=== PATIENT | female | born 1990 | race Caucasian/White ===

== ENCOUNTER 2017-03-24 17:41 | Emergency (ER) | payer OTHER ==
[2017-03-24 17:52] VITALS: BP 135/75; PULSE 86; TEMP 98.2; BMI 21.6
--- NOTE | 2017-03-24 17:54 | PDOC ---
Rapid Medical Evaluation Chief Complaint: Eye Problem Time Seen by Provider: 03/24/17 17:51 Medical Evaluation: Allergies Allergy/AdvReac Type Severity Reaction Status Date / Time sulfamethoxazole Allergy Verified 01/26/15 18:12 [From Bactrim] trimethoprim [From Bactrim] Allergy Verified 01/26/15 18:12 03/24/17 17:51 The patient presents with a chief complaint of: eye pain for 3 days. Scratched eye with [place] paper I have performed a brief in-person evaluation of this patient; Pertinent physical exam findings PRETTY TORRES I have ordered the following: Nothing The patient will proceed to the ED for further evaluation.
[2017-03-24] MEDS ORDERED: FLUORESCEIN NA 1 EA STRIP ONE (18:15)
[2017-03-24] MEDS ORDERED: ERYTHROMYCIN 0.5% OPHTHALMIC OINTMENT 3.5 GM TUBE ONE (18:18)
--- NOTE | 2017-03-24 18:30 | PDOC ---
History of Present Illness - General Chief Complaint: Eye Problem Stated Complaint: EYE PAIN Time Seen by Provider: 03/24/17 17:51 History Source: Patient - History of Present Illness Initial Comments: 03/24/17 18:20 26 year old scratched eye with a box 3 days ago c/o left eye pain that worsened over the days. Patient is afebrile. no pain to eye with movement. 03/24/17 18:55 Past History - Past Medical History Allergies/Adverse Reactions: Allergies Allergy/AdvReac Type Severity Reaction Status Date / Time sulfamethoxazole Allergy Verified 03/24/17 17:52 [From Bactrim] trimethoprim [From Bactrim] Allergy Verified 03/24/17 17:52 Home Medications: Ambulatory Orders Amoxicillin/Potassium Clav [Augmentin 875-125 Tablet] 1 each PO BID #20 tablet 03/24/17 Erythromycin 0.5% Eye Ointment [Erythromycin 0.5% Eye Ointment -] 1 applic OP TID #1 tube 03/24/17 COPD: No Other medical history: denies - Reproductive History (#): 2 Para: 0 Therapeutic (s) & number: No Spontaneous : 1 - Suicide/Smoking/Psychosocial Hx Smoking Status: Yes Smoking History: Current some day smoker Number of Cigarettes Smoked Daily: 10 Information on smoking cessation initiated: No Drug/Substance Use Hx: No Substance Use Type: Alcohol Review of Systems - Review of Systems Able to Perform ROS?: Yes Is the patient limited Fijian proficient: No HEENTM: Yes: Eye Pain *Physical Exam - Vital Signs Last Vital Signs Temp Pulse Resp BP Pulse Ox 98.2 F 86 18 135/75 98 03/24/17 17:49 03/24/17 17:49 03/24/17 17:49 03/24/17 17:49 03/24/17 17:49 - Physical Exam General Appearance: Yes: Appropriately Dressed HEENT: positive: Other (PERRLA, + abrasion to lower left conjunctiva. left septal early cellulitis? septal erythema with tenderness) Medical Decision Making - Medical Decision Making 03/24/17 18:32 Left septal early cellulitis; left corneal abrasion P: augmentin erythromycin close ophthalmology follow up *DC/Admit/Observation/Transfer Diagnosis at time of Disposition: Corneal abrasion, left Qualifiers: Encounter type: initial encounter Qualified Code(s): S05.02XA - Injury of conjunctiva and corneal abrasion without foreign body, left eye, initial encounter - Discharge Dispostion Disposition: HOME - Prescriptions Prescriptions: Amoxicillin/Potassium Clav [Augmentin 875-125 Tablet] 1 each PO BID #20 tablet Erythromycin 0.5% Eye Ointment [Erythromycin 0.5% Eye Ointment -] 1 applic OP TID #1 tube - Referrals - Patient Instructions Printed Discharge Instructions: DI for Corneal Abrasion Additional Instructions: apply warm compress to left eye. instill erythromycin thin ribbon to left eye. take augmentin as prescribed. followup with an msw as soon as possible. return to the ER if symptoms worsen. - Post Discharge Activity Forms/Work/School Notes: Back to Work
[2017-03-24] MEDS ORDERED: FLUORESCEIN NA 1 EA STRIP OS ONE (18:54)
[2017-03-24] MEDS ORDERED: ERYTHROMYCIN 0.5% OPHTHALMIC OINTMENT 3.5 GM TUBE OS ONE (18:54)
== END 2017-03-24 19:00 | disposition home or self-care (01) ==
LOC: JERFT 17:41
DX: S05.02XA Injury of conjunctiva and corneal abrasion without foreign body, left eye, initial encounter (principal); L03.213 Periorbital cellulitis; W22.8XXA Striking against or struck by other objects, initial encounter; Y93.89 Activity, other specified; Y92.89 Other specified places as the place of occurrence of the external cause; Y99.8 Other external cause status
CPT/HCPCS: 99281-25

== ENCOUNTER 2017-05-15 12:35 | Emergency (ER) | payer OTHER ==
[2017-05-15 12:42] VITALS: BP 108/70; PULSE 84; TEMP 98.2; BMI 22.4
[2017-05-15] MEDS ORDERED: ALBUTEROL SO4 2.5/IPRATROPIUM 0.5 INH SOL 3 ML VIAL.NEB. NEB ONE ×3 (15:13→15:36)
--- NOTE | 2017-05-15 15:17 | PDOC ---
History of Present Illness - General Chief Complaint: Ear Problem Stated Complaint: COLD SYMPTOMS Time Seen by Provider: 05/15/17 15:03 History Source: Patient Exam Limitations: No Limitations - History of Present Illness Initial Comments: 05/15/17 , Patient came for evaluation of cough for approximately one week, denies fever, phlegm or purulent drainage from nose however states feels tight. Has used multiple [id number] medications with minimal resolved Timing/Duration: 1 week, intermittent Severity: mild, moderate Modifying Factors: improves with: cold therapy, medication Associated Symptoms: reports: cough, fever/chills, headaches, malaise Past History - Travel Traveled outside of the country in the last 30 days: No Close contact w/someone who was outside of country & ill: No - Past Medical History Allergies/Adverse Reactions: Allergies Allergy/AdvReac Type Severity Reaction Status Date / Time sulfamethoxazole Allergy Verified 05/15/17 12:42 [From Bactrim] trimethoprim [From Bactrim] Allergy Verified 05/15/17 12:42 Home Medications: Ambulatory Orders Albuterol 0.083% Nebulizer Genna [Ventolin 0.083% Nebulizer Soln -] 1 neb NEB Q4H PRN #30 vial 05/15/17 predniSONE [Deltasone -] 20 mg PO BID #8 tablet 05/15/17 COPD: No - Reproductive History (#): 2 Para: 0 Therapeutic (s) & number: No Spontaneous : 1 - Suicide/Smoking/Psychosocial Hx Smoking Status: Yes Smoking History: Current some day smoker Have you smoked in the past 12 months: No Number of Cigarettes Smoked Daily: 10 Information on smoking cessation initiated: No Hx Alcohol Use: No Drug/Substance Use Hx: No Substance Use Type: Alcohol Review of Systems - Review of Systems Able to Perform ROS?: Yes Is the patient limited Kyrgyz proficient: Yes Constitutional: Yes: Symptoms Reported, See HPI, Loss of Appetite, Malaise. No : Fever HEENTM: Yes: Symptoms Reported, Nose Congestion, Throat Pain Respiratory: Yes: Symptoms reported, See HPI, Cough, Shortness of Breath, Wheezing ABD/GI: Yes: Symptoms Reported, See HPI, Nausea. No: Vomiting Musculoskeletal: Yes: Symptoms Reported, See HPI, Muscle Pain Integumentary: No: Symptoms Reported All Other Systems: Reviewed and Negative *Physical Exam - Vital Signs Last Vital Signs Temp Pulse Resp BP Pulse Ox 98.2 F 84 18 108/70 100 05/15/17 12:40 05/15/17 12:40 05/15/17 12:40 05/15/17 12:40 05/15/17 12:40 - Physical Exam General Appearance: Yes: Nourished, Appropriately Dressed, Apparent Distress, Mild Distress HEENT: positive: MESHA, Pharynx Normal, Nasal Congestion, Rhinorrhea (clear), TM Bulging. negative: TMs Normal (congested bilaterally but landmarks easily visualized), TM Erythema Neck: positive: Supple. negative: Lymphadenopathy (R), Lymphadenopathy (L) Respiratory/Chest: positive: Lungs Clear (but tight inspiratory expiratory breath sounds, no true wheezing noted), Decreased Breath Sounds (been mildly tight bilaterally, no obvious wheezing noted.) Cardiovascular: positive: Regular Rate Gastrointestinal/Abdominal: positive: Soft. negative: Tender Musculoskeletal: positive: Normal Inspection Extremity: positive: Normal Capillary Refill, Normal Inspection Integumentary: positive: Dry, Warm, Pale Neurologic: positive: material hauler II-XII NML intact, Fully Oriented, Alert, Normal Mood/ Affect, Normal Response, Motor Strength 5/5 Medical Decision Making - Medical Decision Making 05/15/17 17:02 Much improved after 2 DuoNeb's, and dose of 60 mg of by mouth prednisone. Patient states feels much improved and ready for discharge. *DC/Admit/Observation/Transfer Diagnosis at time of Disposition: Upper respiratory infection, viral - Discharge Dispostion Disposition: HOME Condition at time of disposition: Stable Admit: No - Prescriptions Prescriptions: Albuterol 0.083% Nebulizer Genna [Ventolin 0.083% Nebulizer Soln -] 1 neb NEB Q4H PRN #30 vial PRN Reason: Cough predniSONE [Deltasone -] 20 mg PO BID #8 tablet - Referrals Referrals: Ian Hernandez [Primary Care Provider] - - Patient Instructions Printed Discharge Instructions: DI for Viral Upper Respiratory Infection -- Adult Additional Instructions: Rest, drink lots of fluids: Teas, water, soups, Pedialyte Saltwater gargles Steamy showers/seem to face break up mucus Avoid contact with others until fevers and cough resolved Lots of handwashing and good hygiene Continue [id number]-mdazhgk medications for symptomatic relief Tylenol or Motrin for fever and pain Continue albuterol nebulizers every 4-6 hours for the next 2 days then as needed for continued cough Prednisone as directed until completed Followup with private physician in one to 2 days Return to emergency department / pediatric hospital for worsened symptoms, fevers, dehydration - Post Discharge Activity Forms/Work/School Notes: Back to Work
[2017-05-15] MEDS ORDERED: predniSONE 20 MG TABLET (UD) PO ONE (15:35)
[2017-05-15] MEDS ORDERED: predniSONE 20 MG TABLET (UD) ONE (15:36)
== END 2017-05-15 15:49 | disposition home or self-care (01) ==
LOC: JERFT 12:35
PROC: 3E0F7GC Introduction of Other Therapeutic Substance into Respiratory Tract, Via Natural or Artificial Opening (ICD-10-PCS; principal; 2017-05-15)
PROC: 3E0F7GC Introduction of Other Therapeutic Substance into Respiratory Tract, Via Natural or Artificial Opening (ICD-10-PCS; 2017-05-15)
DX: J06.9 Acute upper respiratory infection, unspecified (principal); B97.89 Other viral agents as the cause of diseases classified elsewhere
CPT/HCPCS: 84703; 94640; 99281-25

== ENCOUNTER 2018-05-03 14:01 | Emergency (ER) | payer OTHER ==
--- NOTE | 2018-05-03 14:57 | PDOC ---
Rapid Medical Evaluation Chief Complaint: Vaginal Bleeding Medical Evaluation: Allergies Allergy/AdvReac Type Severity Reaction Status Date / Time sulfamethoxazole Allergy Verified 05/03/18 14:52 [From Bactrim] trimethoprim [From Bactrim] Allergy Verified 05/03/18 14:52 05/03/18 14:55 I have performed a brief in-person evaluation of this patient. The patient presents with a chief complaint of: Multiple complains including chest tightness w/ cough and sob today, no body aches, f/c. Currently on ocps for menorrhagia but non-compliant as unable to tolerate. Currently bleeding and heavy per pt. C/o dizziness x 1 week. Of note, hgb 12/13 was 12 Physical exam findings:Stable and well opal I have ordered the following:ekg/labs/ua The patient will proceed to the ED for further evaluation. Discharge Disposition - Diagnosis DUB (dysfunctional uterine bleeding) - Referrals - Patient Instructions - Post Discharge Activity
[2018-05-03 14:58] VITALS: BP 104/71; PULSE 71; TEMP 98.1; BMI 24.1
[2018-05-03 15:32] LABS: BASO % 0.6 % (0-2.0); EOS % 1.6 % (0-4.5); HEMATOCRIT 39.8 % (32.4-45.2); HEMOGLOBIN 13.8 GM/dL (10.7-15.3); LYMPH % 28.7 % (8-40); MCH 31.9 pg (25.7-33.7); MCHC 34.8 g/dl (32.0-36.0); MEAN CELL VOLUME 91.7 fl (80-96); MEAN PLT VOLUME 8.8 fl (7.5-11.1); MONO % 5.3 % (3.8-10.2); NEUT % 63.8 % (42.8-82.8); PLATELET COUNT 248 K/MM3 (134-434); RBC 4.34 M/mm3 (3.60-5.2); RDW 12.6 % (11.6-15.6); WHITE BLOOD COUNT 12.9 K/mm3 (4.0-10.0)
--- NOTE | 2018-05-03 16:52 | PDOC ---
History of Present Illness - General Chief Complaint: Vaginal Bleeding Stated Complaint: CHEST PAIN/ COUGHING UP BLOOD - History of Present Illness Initial Comments: The patient is a 28F w/ a history of menorrhagia (non-compliant w/ OCP therapy) and asthma who presents for evaluation of 4d of N/V/D. She reports starting a new OCP (BlisoviFe) Tuesday and shortly thereafter her symptoms began. She reports 3-4 episodes of NBNB emesis each day. Today she noted only one episode of vomiting that was streaked w/ a small amount of blood. She reports her diarrhea has been non-bloody. She endorses sick contacts at home w/ similar symptoms. She reports that her vomiting is preceded by coughing episodes. She states her symptoms are worse at night. They start with scratchy throat, progress to chest tightness, then cough, then vomiting. She has not been using her inhaler recently. She has tried to use her inhaler once unsuccessfully during one of these spells. She reports approximately 4 months of heavy periods w/ associated cramping. She is scheduled for a D&C on Tuesday w/ Dr. Escamilla. She has been on OCPs. The dose was changed last week to double her previous dose. She was taking that dose from last Tuesday until this past Tuesday when she stopped because she thought they were causing her N/V. 05/03/18 16:49 PMH: asthma, menorrhagia PSH: appendectomy Meds: inhaler, OCPs SH: +Tobacco, Social EtOH, Denies illicit drug use Allergies: Bactrim (rash/swelling) Past History - Past Medical History Allergies/Adverse Reactions: Allergies Allergy/AdvReac Type Severity Reaction Status Date / Time sulfamethoxazole Allergy Verified 05/03/18 14:52 [From Bactrim] trimethoprim [From Bactrim] Allergy Verified 05/03/18 14:52 Home Medications: Ambulatory Orders Acetaminophen [Tylenol .Regular Strength -] 650 mg PO Q6H tablet 12/25/17 Albuterol Sulfate Inhaler - [Ventolin HFA Inhaler -] 1 - 2 inh PO Q4H PRN Ibuprofen [Motrin -] 600 mg PO Q6H tablet 12/25/17 Asthma: Yes COPD: No - Surgical History Appendectomy: Yes - Reproductive History (#): 2 Para: 0 Therapeutic (s) & number: No Spontaneous : 1 - Immunization History Immunization Up to Date: Yes - Suicide/Smoking/Psychosocial Hx Smoking Status: Yes Smoking History: Current every day smoker Have you smoked in the past 12 months: Yes Number of Cigarettes Smoked Daily: 20 Information on smoking cessation initiated: No Hx Alcohol Use: No Drug/Substance Use Hx: No Substance Use Type: Marijuana Hx Substance Use Treatment: No Review of Systems - Review of Systems Able to Perform ROS?: Yes Comments:: GENERAL/CONSTITUTIONAL: No fever or chills. No weakness HEAD, EYES, EARS, NOSE AND THROAT: No change in vision. No ear pain or discharge. No sore throat CARDIOVASCULAR: per HPI RESPIRATORY: + cough; Denies hemoptysis GASTROINTESTINAL: per HPI GENITOURINARY: +menorrhagia/cramping; No dysuria, frequency, or change in urination MUSCULOSKELETAL: No joint or muscle swelling or pain. No neck or back pain SKIN: No rash NEUROLOGIC: No headache, vertigo, loss of consciousness, or change in strength/ sensation ENDOCRINE: No increased thirst. No abnormal weight change HEMATOLOGIC/LYMPHATIC: +menorrhagia; No anemia, easy bleeding, or history of blood clots ALLERGIC/IMMUNOLOGIC: No hives or skin allergy 05/03/18 16:50 Is the patient limited Hong Konger proficient: No *Physical Exam - Vital Signs Last Vital Signs Temp Pulse Resp BP Pulse Ox 98.1 F 71 18 104/71 99 05/03/18 14:53 05/03/18 14:53 05/03/18 14:53 05/03/18 14:53 05/03/18 14:53 - Physical Exam Comments: GENERAL: Awake, alert, and fully oriented, in no acute distress HEAD: No signs of trauma, normocephalic, atraumatic EYES: PERRLA, EOMI, sclera anicteric, conjunctiva clear ENT: Hearing grossly normal, nares patent, oropharynx clear without exudates. Moist mucosa LUNGS: No distress, speaks full sentences, clear to auscultation bilaterally HEART: Regular rate and rhythm, normal S1 and S2, no murmurs appreciated, peripheral pulses normal and equal bilaterally ABDOMEN: Soft, non-distended, suprapubic and LLQ TTP w/o rebound or guarding EXTREMITIES : Normal inspection, Normal range of motion, no edema. No clubbing or cyanosis NEUROLOGICAL: Cranial nerves II through XII grossly intact. Normal speech, no focal sensorimotor deficits SKIN: Warm, Dry Pelvic External genitalia unremarkable. Speculum exam with blood in the vaginal vault Vaginal wall mucosa is unremarkable Cervix visualized, os closed, with active bleed from os Bimanual exam without cervical motion tenderness, +tenderness w/ palpation of uterus, no adenexal TTP 05/03/18 16:50 Moderate Sedation - Procedure Monitoring Vital Signs: Procedure Monitoring Vital Signs Temperature 98.1 F 05/03/18 14:53 Pulse Rate 71 05/03/18 14:53 Respiratory Rate 18 05/03/18 14:53 Blood Pressure 104/71 05/03/18 14:53 O2 Sat by Pulse Oximetry (%) 99 05/03/18 14:53 ED Treatment Course - LABORATORY CBC & Chemistry Diagram: 05/03/18 15:00 05/03/18 15:08 - ADDITIONAL ORDERS Additional order review: Laboratory Results 05/03/18 15:08 Serum , Qual Negative 05/03/18 15:00 RBC 4.34 MCV 91.7 MCHC 34.8 RDW 12.6 MPV 8.8 Neutrophils % 63.8 D Lymphocytes % 28.7 D Monocytes % 5.3 Eosinophils % 1.6 D Basophils % 0.6 D Medical Decision Making - Medical Decision Making The pt is a 28F w/ a history of menorrhagia but non-compliant w/ OCP therapy presents for evaluation of 4d of chest tightness/cough, N/V/D, and 4 months of menorrhagia w/ cramps. ED Course CMP, CBC, Serum preg Serum preg negative Hgb at baseline, 13.8 05/03/18 16:50 Tylenol 975mg PO once given for pain 05/03/18 18:13 Marissa delucal Discussed case w/ Dr. Escamilla. Patient w/ slow vaginal bleed and Hgb normal. Plan for D/C and f/u w/ scheduled D&C this coming Tuesday Pt appears non-toxic/comfortable in ED. Requesting to eat solid foods. Plan for D/C w/ PCP & OBGYN f/u Discharge instructions and return precautions given Patient in agreement and verbalized understanding Dispo: home 05/03/18 19:00 *DC/Admit/Observation/Transfer Diagnosis at time of Disposition: DUB (dysfunctional uterine bleeding), Viral syndrome, Post-tussive emesis - Discharge Dispostion Disposition: HOME Condition at time of disposition: Stable Decision to Admit order: No - Referrals Referrals: Rachid Hernandez MD [Primary Care Provider] - Lani Escamilla DO [Staff Physician] - - Patient Instructions Printed Discharge Instructions: DI for Viral Syndrome, DI for Menorrhagia Additional Instructions: You were seen in the Emergency Department for evaluation of nausea, vomiting, diarrhea, cough, and vaginal bleeding/cramping. Your hemoglobin was normal. Review the handout provided at discharge. Follow up with OBGYN and your PCP. Return to the Emergency Department if your bleeding worsens, you are unable to tolerate food, you have fevers despite Tylenol use, worsening symptoms, or any new/concerning symptoms. - Post Discharge Activity
--- NOTE | 2018-05-03 17:12 | PDOC ---
Attending Attestation - HPI HPI: 05/03/18 19:00 The patient is a 28 year old female with a significant PMH of asthma who presents to the emergency department with menorrhagia for the past two months. Patient states she has a scheduled D&C on 05/08. Patient also states she has been experiencing nausea, dry cough, post-tussive emesis, and diarrhea for the past 4 days. Patient reports she starting taking a new OCP (BlisoiFe) prior to the onset of these symptoms. Patient states she stopped taking her OCPs to see if her symptoms would resolve. Patient reports positive sick contact at home. The patient denies chest pain, shortness of breath, headache, dizziness, fever, chills, constipation. Denies dysuria, frequency, urgency and hematuria. Allergies: NKA Past surgical history: None reported. Social history: No reported alcohol, drug or cigarette use. PCP: Dr. Hernandez - Physicial Exam PE: 05/03/18 19:07 ADULT PHYSICAL EXAM Constitutional: Awake, alert, oriented. No acute distress. Cardiovascular: Regular rate. Regular rhythm. S1, S2 regular. Distal pulses are 2+ and symmetric. Pulmonary/Chest: No evidence of respiratory distress. Clear to auscultation bilaterally No wheezing, rales or rhonchi. Abdominal: Soft and non-distended. There is no tenderness. No rebound, guarding or rigidity. No organomegaly. No palpable masses. Good bowel sounds. Back: No CVA tenderness. Musculoskeletal: No edema. Full range of motion in all extremities. Radial/ pedal pulses are intact and 2+ bilaterally Skin: Skin is warm and dry. No petechiae. No purpura. Neurological: Alert and oriented to person, place, and time. Cranial nerves II -XII are grossly intact. Normal speech. Strength is grossly symmetric. No sensory deficits. Psychiatric: Good eye contact. Normal interaction, affect and behavior. <Felicia Doherty - Last Filed: 05/03/18 19:04> - Resident Resident Name: Thien Shook - ED Attending Attestation I have performed the following: I have examined & evaluated the patient, The case was reviewed & discussed with the resident, I agree w/resident's findings & plan, Exceptions are as noted - Medical Decision Making 05/03/18 17:11 I, Dr. Verito Noonan, DO, attest that this document has been prepared under my direction and personally reviewed by me in its entirety. I further attest, that it accurately reflects all work, treatment, procedures and medical decision -making performed by me. 05/03/18 19:16 a/p: 28yo female with viral syndrome - dry cough, n/v/d -no fevers/chills -symptoms since tuesday -nontoxic in appearance -scheduled for dc tuesday with Dr. Escamilla -labs sent from [facility] reviewed -pt ambulatory in the ED with a steady gait -eating chips and drinking soda - no vomiting in the ED -stable for dc to home and follow up on tuesday with NURSES DIRECTOR -stopped her control and c/o pelvic cramping since starting her OCP <Verito Noonan - Last Filed: 05/03/18 19:18>
[2018-05-03] MEDS ORDERED: ACETAMINOPHEN 325 MG TABLET (FP) PO ONE (18:13)
[2018-05-03 18:37] LABS: ALBUMIN 3.6 g/dl (3.4-5.0); ALK PHOS 58 U/L (45-117); ANION GAP 8 MMOL/L (8-16); BILIRUBIN,TOTAL 0.2 mg/dL (0.2-1); BLOOD UREA NITROGEN 12 mg/dL (7-18); CALCIUM 8.5 mg/dL (8.5-10.1); CHLORIDE 106 mmol/L (98-107); CO2 23 mmol/L (21-32); CREATININE 0.7 mg/dL (0.55-1.3); GLUCOSE,RANDOM 97 mg/dL (74-106); SGOT/AST 12 U/L (15-37); SGPT/ALT 24 U/L (13-61); SODIUM 137 mmol/L (136-145); TOT PROT 7.1 g/dl (6.4-8.2)
[2018-05-03] MEDS ORDERED: ACETAMINOPHEN 325 MG TABLET (FP) ONE (19:01)
--- NOTE | 2018-05-04 16:44 | EKG ---
Test Reason : Blood Pressure : / mmHG Vent. Rate : 065 BPM Atrial Rate : 065 BPM P-R Int : 130 ms QRS Dur : 066 ms QT Int : 384 ms P-R-T Axes : 051 065 038 degrees QTc Int : 399 ms NORMAL SINUS RHYTHM NORMAL ECG WHEN COMPARED WITH ECG OF 24-DEC-2017 04:02, NO SIGNIFICANT CHANGE WAS FOUND Confirmed by RUMA BUCK MD ([id number]) on 05/04/2018 4:44:22 PM Referred By: Confirmed By:RUMA BUCK MD
== END 2018-05-03 19:09 | disposition home or self-care (01) ==
LOC: JER 14:01
DX: N93.8 Other specified abnormal uterine and vaginal bleeding (principal); R05 Cough; B34.9 Viral infection, unspecified
CPT/HCPCS: 36415; 80053; 84703; 85025; 93005; 93010; 99281-25

== ENCOUNTER 2018-05-08 11:51 | Day surgery (SDC) | payer OTHER ==
[2018-05-05 11:51] VITALS: BMI 25.0
--- NOTE | 2018-05-08 12:27 | HP ---
Admitting History and Physical - Admission Chief Complaint: abnormal vaginal bleeding History of Present Illness: 28y /o G0 female with recent diagnosis of PCOS presents for hysteroscopy, D&C for continuous vaginal bleeding since January. Pt was recently started on OCPs in hopes to help with the bleeding but with little relief. History Source: Medical Record Limitations to Obtaining History: No Limitations - Past Medical History PEGGER: Yes: Migraine Pulmonary: Yes: Asthma, Bronchitis ...LMP: 01/09/18 ...LMP Comment: bleeding continually ...: No ...: 0 - Past Surgical History Past Surgical History: Yes: None - Smoking History Smoking history: Current every day smoker Have you smoked in the past 12 months: Yes Aproximately how many cigarettes per day: 10 - Alcohol/Substance Use Hx Alcohol Use: No (social) History of Substance Use: reports: None - Social History ADL: Independent Occupation: store person Home Medications - Allergies Allergies/Adverse Reactions: Allergies Allergy/AdvReac Type Severity Reaction Status Date / Time sulfamethoxazole Allergy Verified 05/05/18 11:43 [From Bactrim] trimethoprim [From Bactrim] Allergy Verified 05/05/18 11:43 - Home Medications Home Medications: Ambulatory Orders Albuterol Sulfate Inhaler - [Ventolin Hfa Inhaler -] 1 - 2 inh PO Q4H PRN Ferrous Sulfate 325 mg PO DAILY 05/05/18 Sumatriptan Succinate [Imitrex] 25 mg PO PRN PRN 05/05/18 Problem List - Problems (1) Abnormal uterine bleeding (AUB) Code(s): N93.9 - ABNORMAL UTERINE AND VAGINAL BLEEDING, UNSPECIFIED (2) Polycystic ovarian syndrome Code(s): E28.2 - POLYCYSTIC OVARIAN SYNDROME Assessment/Plan AUB known PCOS for hysteroscopy D&C
[2018-05-08 12:33] LABS: URINE APPEARANCE CLEAR; URINE BILIRUBIN NEGATIVE (<2.0 mg/dL); URINE COLOR LTYELLOW; URINE GLUCOSE (UA) NEGATIVE (NEGATIVE); URINE KETONE NEGATIVE (NEGATIVE); URINE LEUK ESTERASE NEGATIVE (NEGATIVE); URINE NITRITE NEGATIVE (NEGATIVE); URINE PROTEIN NEGATIVE (NEGATIVE); URINE UROBILINOGEN NEGATIVE mg/dL (0.2-1.0)
[2018-05-08] MEDS ORDERED: ACETAMINOPHEN 325 MG TABLET (FP) PO PRN (12:50)
[2018-05-08] MEDS ORDERED: MIDAZOLAM HCL 2 MG/2 ML SINGLE DOSE VIAL ONE ×2 (12:54)
[2018-05-08] MEDS ORDERED: PROPOFOL 20 ML ONE ×2 (12:54)
[2018-05-08] MEDS ORDERED: ONDANSETRON 4 MG/2 ML VIAL IVPUSH PRN (13:06)
[2018-05-08] MEDS ORDERED: oxyCODONE HCL 5 MG TABLET PO PRN ×2 (13:06)
[2018-05-08] MEDS ORDERED: LACTATED RINGERS SOLUTION 1,000 ML IV SCH (13:15)
[2018-05-08] MEDS ORDERED: KETOROLAC TROMETHAMINE 30 MG/1 ML VIAL ONE (14:04)
[2018-05-08 18:49] VITALS: BP 106/56; PULSE 60; TEMP 97.8
--- NOTE | 2018-05-09 07:15 | OP ---
Operative Note - Note: Operative Date: 05/08/18 ([id number]) Pre-Operative Diagnosis: AUB, PCOS Operation: hysteroscopy , D&C Findings: b/l tubal ostea were noted no intracavitary lesions Surgeon: Lani Escamilla Anesthesiologist/AFTER SCHOOL COUNSELOR: Moreno Doe Anesthesia: MAC Estimated Blood Loss (mls): 5 Operative Report Dictated: Yes
--- NOTE | 2018-05-09 10:22 | OP ---
DATE OF OPERATION: 05/08/2018 PREOPERATIVE DIAGNOSIS: Abnormal uterine bleeding. POSTOPERATIVE DIAGNOSIS: Abnormal uterine bleeding. PROCEDURE: Diagnostic hysteroscopy, dilatation and curettage. SURGEON: Lani Escamilla DO ANESTHESIA: MAC by Moreno Doe MD. COMPLICATIONS: None. SPECIMENS REMOVED: Endometrial curettings. ESTIMATED BLOOD LOSS: 5 mL COUNTS: Sponge and instrument count correct. DISPOSITION: Stable to PACU. BRIEF HISTORY AND PROCEDURE: Patient is a 28-year-old female who had been seen in the office with complaints of abnormal uterine bleeding since January. Patient had tried medical therapy and failed and decided to undergo a D&C procedure to help diagnose and stop the bleeding. Patient signed consents for the procedure on May 08, 2018, after being admitted to the hospital, and she was then taken back to the operating room and given MAC anesthesia and placed in the dorsal lithotomy position. She was prepped and draped in the usual sterile fashion, and a hard timeout was performed. A speculum was placed inside the vagina. A tenaculum was used to grasp the anterior lip of the cervix, and the cervix was dilated to accommodate a diagnostic hysteroscope which was advanced to the fundus of the uterus. Bilateral tubal ostia were noted. No intracavitary fibroids or polyps were appreciated. A sharp curettage was gently performed on all 4 stauffer of the uterus, and a suction curettage was completed to remove all the endometrial curettings. One final pass with the hysteroscope revealed no evidence of uterine perforation. All instruments were removed from the vagina. Minimal bleeding was noted from the cervix as well as from the tenaculum sites. Counts were reported to be correct. The patient was awoken from anesthesia and recovering in a stable condition in the PACU after the procedure. LANI ESCAMILLA DO /[id number]
--- NOTE | 2018-05-10 10:17 | PATH ---
Surgical Pathology Report Patient Name: THOMAS OCASIO [facility]. Rec. #: [id number] /Age/Gender: 1990 (Age: 28) / F Account: [id number] Location: [facility] SURGICAL Taken: 05/08/2018 Received: 05/09/2018 Reported: 05/10/2018 Physicians: Lani Escamilla M.D. Specimen(s) Received ENDOMETRIAL CURETTINGS Clinical History Abnormal uterine bleeding, PCOS Final Diagnosis ENDOMETRIAL CURETTINGS, DILATATION AND CURETTAGE: FRAGMENTS OF PROLIFERATIVE ENDOMETRIUM AND SCANT BENIGN CERVICAL TISSUE. Electronically Signed Lyudmila Frank M.D. Gross Description Received in formalin labeled "endometrial curettings" is a 4.0 x 2.5 x 0.3 cm aggregate of blood-tinged mucus, containing tavarez-brown soft tissue fragments and blood clot. The formalin is filtered and the specimen is entirely submitted in 2 cassettes. /05/09/2018 saudi/05/09/2018
== END 2018-05-08 16:45 | disposition home or self-care (01) ==
LOC: JASU-SURG 11:51
PROVIDERS: ATTEND Obstetrics & Gynecology
PROC: 0UDB7ZX Extraction of Endometrium, Via Natural or Artificial Opening, Diagnostic (ICD-10-PCS; principal; 2018-05-08 13:30)
PROC: 0UJD8ZZ Inspection of Uterus and Cervix, Via Natural or Artificial Opening Endoscopic (ICD-10-PCS; 2018-05-08 13:30)
DX: N93.9 Abnormal uterine and vaginal bleeding, unspecified (principal)
CPT/HCPCS: 81003; 84703; 86850; 86900; 86901; 88305-TC; 94760

== ENCOUNTER 2018-09-04 17:17 | Emergency (ER) | payer OTHER | END 2018-09-04 18:26 | disposition home or self-care (01) | LOC: JERFT 17:17 ==

== ENCOUNTER 2018-11-16 11:48 | Emergency (ER) | payer OTHER ==
[2018-11-16 12:34] VITALS: BP 114/70; PULSE 85; TEMP 98.2; BMI 25.6
--- NOTE | 2018-11-16 13:15 | PDOC ---
*Physical Exam - Vital Signs Last Vital Signs Temp Pulse Resp BP Pulse Ox 98.2 F 85 17 114/70 95 11/16/18 12:32 11/16/18 12:32 11/16/18 12:32 11/16/18 12:32 11/16/18 12:32
--- NOTE | 2018-11-16 13:25 | PDOC ---
History of Present Illness - General Chief Complaint: Abscess Boil Stated Complaint: LUMP Time Seen by Provider: 11/16/18 12:50 History Source: Patient Exam Limitations: No Limitations - History of Present Illness Initial Comments: 11/16/18 13:20 28 year old female with history of migraine and appendectomy presents with abscess in sacral area. Patient states small area of accumulation started 5-6 days ago, now area is red, tender and painful making it hard for her to sit. Denies fever or chills. States usually has abscess on lower legs occasionally. Timing/Duration: reports: week Severity: Yes: mild Location: reports: other (sacral area) Respiratory Risk Factors: reports: no cause identified Associated Symptoms: reports: denies symptoms Past History - Travel Traveled outside of the country in the last 30 days: No Close contact w/someone who was outside of country & ill: No - Past Medical History Allergies/Adverse Reactions: Allergies Allergy/AdvReac Type Severity Reaction Status Date / Time sulfamethoxazole Allergy Verified 11/16/18 12:32 [From Bactrim] trimethoprim [From Bactrim] Allergy Verified 11/16/18 12:32 Home Medications: Ambulatory Orders Albuterol Sulfate Inhaler - [Ventolin Hfa Inhaler -] 1 - 2 inh PO Q4H PRN Sumatriptan Succinate [Imitrex] 25 mg PO PRN PRN 05/05/18 Aspirin/Acetaminophen/Caffeine [Excedrin Migraine Caplet] 1 each PO PRN Ibuprofen [Motrin -] 600 mg PO QID PRN #28 tablet 05/08/18 Budesonide [Rhinocort Allergy] 1 spray NS ONCE #1 spray.pump 09/04/18 Cetirizine HCl/Pseudoephedrine [Zyrtec-D Tablet] 1 each PO DAILY #30 tab.er.12h 09/04/18 Cephalexin [Keflex] 500 mg PO BID #14 capsule 11/16/18 Clindamycin [Cleocin -] 600 mg PO Q8H #42 capsule 11/16/18 Anemia: Yes Asthma: Yes COPD: No - Surgical History Appendectomy: Yes (01/12) - Reproductive History (#): 2 Para: 0 Therapeutic (s) & number: No Spontaneous : 1 - Immunization History Immunization Up to Date: Yes - Suicide/Smoking/Psychosocial Hx Smoking Status: Yes Smoking History: Never smoked Have you smoked in the past 12 months: Yes Number of Cigarettes Smoked Daily: 20 Information on smoking cessation initiated: No Hx Alcohol Use: No Drug/Substance Use Hx: No Substance Use Type: None Hx Substance Use Treatment: No Review of Systems - Review of Systems Able to Perform ROS?: Yes Is the patient limited Tajik proficient: No Constitutional: No: Chills HEENTM: No: Ear Pain, Nose Congestion, Throat Swelling Respiratory: No: Shortness of Breath, Stridor Cardiac (ROS): No: Chest Pain ABD/GI: No: Abdominal Distended : No: Burning, Incontinence Integumentary: Yes: Other (+ abscess to sacral area) Hematologic/Lymphatic: No: Easy Bleeding *Physical Exam - Vital Signs Last Vital Signs Temp Pulse Resp BP Pulse Ox 98.2 F 85 17 114/70 95 11/16/18 12:32 11/16/18 12:32 11/16/18 12:32 11/16/18 12:32 11/16/18 12:32 - Physical Exam General Appearance: Yes: Nourished, Appropriately Dressed HEENT: positive: TMs Normal Neck: positive: Supple. negative: Lymphadenopathy (R), Lymphadenopathy (L) Respiratory/Chest: positive: Lungs Clear, Normal Breath Sounds Cardiovascular: positive: Regular Rhythm, Regular Rate Extremity: positive: Normal Capillary Refill Integumentary: positive: Other (+ erythematous area in sacral area, no fluctuance, induration felt, tender) Neurologic: positive: Fully Oriented, Alert Medical Decision Making - Medical Decision Making 11/16/18 13:26 28 year old female with history of migraine and appendectomy presents with abscess in sacral area. Plan encouraged to do warm compress 3 x daily rx: keflex clindamycin return to ed 11/18/18 *DC/Admit/Observation/Transfer Diagnosis at time of Disposition: Pilonidal cyst - Discharge Dispostion Disposition: HOME Condition at time of disposition: Good Decision to Admit order: No - Prescriptions Prescriptions: Cephalexin [Keflex] 500 mg PO BID #14 capsule Clindamycin [Cleocin -] 600 mg PO Q8H #42 capsule - Referrals - Patient Instructions Printed Discharge Instructions: Pilonidal Cyst Additional Instructions: Please sit in warm water for 20 minutes 3 to 4 times daily Please return to emergency on 11/18/18 Take medication as prescribed - Post Discharge Activity Forms/Work/School Notes: Back to Work
== END 2018-11-16 13:35 | disposition home or self-care (01) ==
LOC: JERFT 11:48
DX: L05.91 Pilonidal cyst without abscess (principal)
CPT/HCPCS: 99281-25

== ENCOUNTER 2018-11-18 09:26 | Emergency (ER) | payer OTHER | END 2018-11-18 10:45 | disposition home or self-care (01) | LOC: JER 09:26 → JERFT 10:45 ==

== ENCOUNTER 2019-01-01 20:26 | Emergency (ER) | payer OTHER ==
[2019-01-01 20:31] VITALS: BP 108/68; PULSE 109; TEMP 98.8; BMI 25.0
--- NOTE | 2019-01-02 00:57 | PDOC ---
*Physical Exam - Vital Signs Last Vital Signs Temp Pulse Resp BP Pulse Ox 98.8 F 109 H 18 108/68 98 01/01/19 20:29 01/01/19 20:29 01/01/19 20:29 01/01/19 20:29 01/01/19 20:29 Medical Decision Making - Medical Decision Making 01/02/19 00:57 Patient seen by the advanced practice provider under my direct supervision. Ancillary testing reviewed as necessary. I agree with plan as outlined by the advanced practice provider. Discharge - Discharge Information Problems reviewed: Yes Clinical Impression/Diagnosis: Pilonidal abscess Disposition: HOME - Additional Discharge Information Prescriptions: Clindamycin [Cleocin -] 150 mg PO Q6H #40 capsule Ibuprofen 600 mg PO QID PRN #20 tablet PRN Reason: Pain Lactobacillus 3/Fos/Pantethine [Probiotic & Acidophilus Cap] 1 each PO BID #14 capsule - Follow up/Referral Referrals: Janeen Hernandez [Primary Care Provider] - - Patient Discharge Instructions Patient Printed Discharge Instructions: DI for Wound Infection Additional Instructions: warm compress to the area. take clindamycin as prescribed. take ibuprofen as prescribed for pain take probiotics 2 hours or 2 hours after your antibiotics dose follow up with your doctor as soon as possible. return to the ER in 2 days for a wound check and packing removal - Post Discharge Activity Work/Back to School Note: Back to Work
--- NOTE | 2019-01-02 01:06 | PDOC ---
History of Present Illness - General Chief Complaint: Revisit,Wound Recheck Stated Complaint: Abscess Boil Time Seen by Provider: 01/02/19 00:52 History Source: Patient - History of Present Illness Initial Comments: 01/02/19 01:00 28 year old c/o sacral area swelling and increased redness for the past 3 days. patient reports that she has similar skin infection 2 months ago no wth infection returned. reports fever// chills. Past History - Past Medical History Allergies/Adverse Reactions: Allergies Allergy/AdvReac Type Severity Reaction Status Date / Time sulfamethoxazole Allergy Verified 01/01/19 20:31 [From Bactrim] trimethoprim [From Bactrim] Allergy Verified 01/01/19 20:31 Home Medications: Ambulatory Orders Clindamycin [Cleocin -] 150 mg PO Q6H #40 capsule 01/02/19 Ibuprofen 600 mg PO QID PRN #20 tablet 01/02/19 Lactobacillus 3/Fos/Pantethine [Probiotic & Acidophilus Cap] 1 each PO BID #14 capsule 01/02/19 Anemia: Yes Asthma: Yes COPD: No - Surgical History Appendectomy: Yes (01/12) - Reproductive History (#): 2 Para: 0 Therapeutic (s) & number: No Spontaneous : 1 - Immunization History Immunization Up to Date: Yes - Psycho Social/Smoking Cessation Hx Smoking Status: Yes Smoking History: Never smoked Have you smoked in the past 12 months: Yes Number of Cigarettes Smoked Daily: 20 Hx Alcohol Use: No Drug/Substance Use Hx: No Substance Use Type: None Hx Substance Use Treatment: No *Physical Exam - Vital Signs Last Vital Signs Temp Pulse Resp BP Pulse Ox 98.8 F 109 H 18 108/68 98 01/01/19 20:29 01/01/19 20:29 01/01/19 20:29 01/01/19 20:29 01/01/19 20:29 - Physical Exam General Appearance: Yes: Appropriately Dressed Integumentary: positive: Other (no fluctuant mass noted. erythema to sacral area. pain ful to touch) Neurologic: positive: Fully Oriented, Alert, Normal Mood/Affect Procedures - Consent Consent obtained: Verbal - Incision and Drainage I&D Site: Left: Other (pilonidal cyst) Betadine cleansed: Yes Anesthesia: 1% Lidocaine Blade Size: 11 Iodinated Packin/4 in Plain Packing: Yes Complications: none Progress: 01/02/19 01:54 copious pus drainage. wound kept open with packing. ED Progress Note - Progress Note Progress Note: A: pilonidal cyst drainge see procedure note patient to return in 2 days for a wound check and packing removal Discharge - Discharge Information Problems reviewed: Yes Clinical Impression/Diagnosis: Pilonidal abscess Disposition: HOME - Additional Discharge Information Prescriptions: Clindamycin [Cleocin -] 150 mg PO Q6H #40 capsule Ibuprofen 600 mg PO QID PRN #20 tablet PRN Reason: Pain Lactobacillus 3/Fos/Pantethine [Probiotic & Acidophilus Cap] 1 each PO BID #14 capsule - Follow up/Referral Referrals: Janeen Hernandez [Primary Care Provider] - - Patient Discharge Instructions Patient Printed Discharge Instructions: DI for Wound Infection Additional Instructions: warm compress to the area. take clindamycin as prescribed. take ibuprofen as prescribed for pain take probiotics 2 hours or 2 hours after your antibiotics dose follow up with your doctor as soon as possible. return to the ER in 2 days for a wound check and packing removal - Post Discharge Activity Work/Back to School Note: Back to Work
[2019-01-02] MEDS ORDERED: CLINDAMYCIN HCL 300 MG CAPSULE PO ONE (01:53)
[2019-01-02] MEDS ORDERED: IBUPROFEN 400 MG TABLET (FP) PO ONE ×2 (01:53→01:58)
[2019-01-02] MEDS ORDERED: CLINDAMYCIN HCL 150 MG CAPSULE (FP) ONE (01:58)
== END 2019-01-02 02:16 | disposition home or self-care (01) ==
LOC: JER 20:26
PROC: 0J990ZZ Drainage of Buttock Subcutaneous Tissue and Fascia, Open Approach (ICD-10-PCS; principal; 2019-01-01)
DX: L05.01 Pilonidal cyst with abscess (principal); Z88.2 Allergy status to sulfonamides
CPT/HCPCS: 10080; 99281-25

== ENCOUNTER 2019-01-24 12:38 | Emergency (ER) | payer OTHER ==
[2019-01-24 12:42] VITALS: BP 129/71; PULSE 84; TEMP 98.7; BMI 25.0
--- NOTE | 2019-01-24 13:17 | PDOC ---
History of Present Illness - General Chief Complaint: Ear Problem Stated Complaint: LF EAR ACHE/SORE THROAT Time Seen by Provider: 01/24/19 12:40 - History of Present Illness Initial Comments: 01/24/19 13:17 CHIEF COMPLAINT: sore throat, ear pain HISTORY OF PRESENT ILLNESS: 28 yo F with no significant PMH [facility] with sore throat and ear pain. Patient reports she has had the sore throat for almost a week and woke up today with L ear pain. She reports fever yesterday that was relieved by taking Tylenol. She denies any difficulty breathing but reports pain when swallowing. No recent travel or sick contacts. PAST MEDICAL HISTORY: Denies past medical history FAMILY HISTORY: Denies SOCIAL HISTORY: Denies tobacco, alcohol, illicit drug use. SURGICAL HISTORY: Denies ALLERGIES: bactrim REVIEW OF SYSTEMS General/Constitutional: Fever yesterday. Denies weakness, weight change. HEENT: Sore throat, L ear pain. Denies change in vision. Cardiovascular: Denies chest pain or shortness of breath. Respiratory: Denies cough, wheezing, or hemoptysis. Gastrointestinal: Denies nausea, vomiting, diarrhea or constipation. Denies rectal bleeding. Genitourinary: Denies dysuria, frequency, or change in urination. Musculoskeletal: Denies joint or muscle swelling or pain. Denies neck or back pain. Skin and breasts: Denies rash or easy bruising. Neurologic: Denies headache, vertigo, loss of consciousness, or loss of sensation. Psychiatric: Denies depression or anxiety. PHYSICAL EXAM General Appearance: Well-appearing, appropriately dressed. No apparent distress , no intoxication. HEENT: Dullness to L TM, exudate to L tonsil. No tonsillar abscess appreciated. EOMI, PERRLA, normal voice,pharynx normal. No conjunctival pallor. No photophobia, scleral icterus. Neck: Supple. Trachea midline. No tenderness, rigidity, carotid bruit, stridor , lymphadenopathy, or thyromegaly. Respiratory/Chest: Lungs CTAB. No shortness of breath, chest tenderness, respiratory distress, accessory muscle use. No crackles, rales, rhonchi, stridor , wheezing, dullness Cardiovascular: RRR. S1, S2. No JVD, murmur, bradycardia, tachycardia. Vascular Pulses: Dorsalis-Pedis (R): 2+, Dorsalis-Pedis (L): 2+ Gastrointestinal/Abdominal: Normal bowel sounds. Abdomen soft, non-distended. No tenderness or rebound tenderness. No organomegaly, pulsatile mass, guarding , hernia, hepatomegaly, splenomegaly. Lymphatic: No adenopathy, tenderness. Musculoskeletal/Extremities: Normal inspection. FROM of all extremities, normal capillary refill. Pelvis Stable. No CVA tenderness. No tenderness to extremities, pedal edema, swelling, erythema or deformity. Integumentary: Appropriate color, dry, warm. No cyanosis, erythema, jaundice or rash Neurologic: scissors grinder II-XII intact. Fully oriented, alert. Appropriate mood/affect. Motor strength 5/5. No appreciable EOM palsy, facial droop or sensory deficit. 01/24/19 13:42 Past History - Past Medical History Allergies/Adverse Reactions: Allergies Allergy/AdvReac Type Severity Reaction Status Date / Time sulfamethoxazole Allergy Verified 01/24/19 12:42 [From Bactrim] trimethoprim [From Bactrim] Allergy Verified 01/24/19 12:42 Home Medications: Ambulatory Orders Clindamycin [Cleocin -] 150 mg PO Q6H #40 capsule 01/02/19 Ibuprofen 600 mg PO QID PRN #20 tablet 01/02/19 Lactobacillus 3/Fos/Pantethine [Probiotic & Acidophilus Cap] 1 each PO BID #14 capsule 01/02/19 Amoxicillin 875 mg PO BID #20 tablet 01/24/19 Anemia: Yes Asthma: Yes COPD: No - Surgical History Appendectomy: Yes (01/12) - Reproductive History (#): 2 Para: 0 Therapeutic (s) & number: No Spontaneous : 1 - Immunization History Immunization Up to Date: Yes - Psycho Social/Smoking Cessation Hx Smoking Status: Yes Smoking History: Never smoked Have you smoked in the past 12 months: Yes Number of Cigarettes Smoked Daily: 20 Information on smoking cessation initiated: No Hx Alcohol Use: No Drug/Substance Use Hx: No Substance Use Type: None Hx Substance Use Treatment: No *Physical Exam - Vital Signs Last Vital Signs Temp Pulse Resp BP Pulse Ox 98.7 F 84 19 129/71 99 01/24/19 12:40 01/24/19 12:40 01/24/19 12:40 01/24/19 12:40 01/24/19 12:40 Medical Decision Making - Medical Decision Making 01/24/19 13:44 28 yo F with no significant PMH [facility] with sore throat and ear pain. -strep swab Will treat for otitis with amoxicillin, also covering for strep. Advised patient to take medication as prescribed and follow up with PCP in 1 week. Advised patient of signs and symptoms for return to ED. Patient verbalized understanding and agrees to plan. Discharge - Discharge Information Problems reviewed: Yes Clinical Impression/Diagnosis: Otitis media Qualifiers: Otitis media type: suppurative Chronicity: acute Laterality: left Recurrence: not specified as recurrent Spontaneous tympanic membrane rupture: without spontaneous rupture Qualified Code(s): H66.002 - Acute suppurative otitis media without spontaneous rupture of ear drum, left ear Pharyngitis Qualifiers: Pharyngitis/tonsillitis etiology: unspecified etiology Qualified Code(s): J02.9 - Acute pharyngitis, unspecified Condition: Stable Disposition: HOME - Admission No - Additional Discharge Information Prescriptions: Amoxicillin 875 mg PO BID #20 tablet - Follow up/Referral Referrals: Rachid Hernandez MD [Primary Care Provider] - - Patient Discharge Instructions Patient Printed Discharge Instructions: Middle Ear Infection, DI for Pharyngitis/Tonsillopharyngitis -- Adult - Post Discharge Activity
== END 2019-01-24 13:57 | disposition home or self-care (01) ==
LOC: JERFT 12:38
DX: H66.002 Acute suppurative otitis media without spontaneous rupture of ear drum, left ear (principal); J02.9 Acute pharyngitis, unspecified; Z88.8 Allergy status to other drugs, medicaments and biological substances; J45.909 Unspecified asthma, uncomplicated; Z87.891 Personal history of nicotine dependence
CPT/HCPCS: 87070; 87880; 99282-25

== ENCOUNTER 2019-04-06 19:35 | Emergency (ER) | payer SELFPAY ==
[2019-04-06 19:46] VITALS: BP 127/84; PULSE 105; TEMP 98.7; BMI 24.1
--- NOTE | 2019-04-06 20:18 | PDOC ---
History of Present Illness - General Chief Complaint: Abscess Boil Stated Complaint: ABCESS Time Seen by Provider: 04/06/19 20:15 History Source: Patient - History of Present Illness Initial Comments: 04/06/19 20:39 Chief complaint: Pilonidal abscess Patient is a 28-year-old female with history of repeat pilonidal abscesses, the last one in the fall. Patient is noticed in the last week and a half she has been having pain to the area but it got worse in the last 2 days. No fever. Patient never followed up with surgeon. GENERAL/CONSTITUTIONAL: No fever, weakness. dizziness HEAD, EYES, EARS, NOSE AND THROAT: No change in vision. No ear pain or discharge. No sore throat. CARDIOVASCULAR: No chest pain RESPIRATORY: No shortness of breath or cough GASTROINTESTINAL: No pain, nausea, vomiting, diarrhea or constipation GENITOURINARY: No dysuria MUSCULOSKELETAL: No neck or back pain SKIN: No rash NEUROLOGIC: No headache, vertigo, loss of consciousness, or loss of sensation. GENERAL: The patient is awake, alert, and fully oriented, in no acute distress. HEAD: Normal with no signs of trauma. EYES: Pupils equal, round and reactive to light, sclera anicteric, conjunctiva clear. ENT: pharynx: no erythema, no exudate, uvula midline NECK: supple CHEST: clear, nontender, rr ABD: soft, nontender Buttocks: Small pilonidal swelling, no fluctuance, raised erythemic abscess area right side worse than left. No signs of tiffanie-rectal swelling or tenderness BACK: no tenderness or signs of injury EXTREMITIES: Normal range of motion, no edema. NEUROLOGICAL: Normal speech, normal gait. SKIN: Warm, Dry Past History - Past Medical History Allergies/Adverse Reactions: Allergies Allergy/AdvReac Type Severity Reaction Status Date / Time sulfamethoxazole Allergy Verified 04/06/19 19:41 [From Bactrim] trimethoprim [From Bactrim] Allergy Verified 04/06/19 19:41 Home Medications: Ambulatory Orders Clindamycin [Cleocin -] 150 mg PO Q6H #40 capsule 01/02/19 Ibuprofen 600 mg PO QID PRN #20 tablet 01/02/19 Lactobacillus 3/Fos/Pantethine [Probiotic & Acidophilus Cap] 1 each PO BID #14 capsule 01/02/19 Amoxicillin 875 mg PO BID #20 tablet 01/24/19 Clindamycin [Cleocin -] 300 mg PO Q6HPO #28 capsule 04/06/19 Anemia: Yes Asthma: Yes COPD: No - Surgical History Appendectomy: Yes (01/12) - Reproductive History (#): 2 Para: 0 Therapeutic (s) & number: No Spontaneous : 1 - Immunization History Immunization Up to Date: Yes - Psycho Social/Smoking Cessation Hx Smoking Status: Yes Smoking History: Current every day smoker Have you smoked in the past 12 months: Yes Number of Cigarettes Smoked Daily: 20 Information on smoking cessation initiated: No Hx Alcohol Use: No Drug/Substance Use Hx: No Substance Use Type: None Hx Substance Use Treatment: No *Physical Exam - Vital Signs Last Vital Signs Temp Pulse Resp BP Pulse Ox 98.7 F 105 H 18 127/84 100 04/06/19 19:37 04/06/19 19:37 04/06/19 19:37 04/06/19 19:37 04/06/19 19:37 Procedures - Incision and Drainage I&D Site: Right: Other (Pilonidal) Betadine cleansed: Yes Anesthesia: 1% Lidocaine Blade Size: 11 Attempts: 1 Iodinated Packin/4 in Plain Packing: Yes Complications: none Dressing: Yes Medical Decision Making - Medical Decision Making 04/06/19 20:40 Patient with repeated pilonidal abscesses, with 1-1/2 weeks of symptoms getting worse in the last 2 days. No fever and appears well but uncomfortable. Will do incision and drainage Discussed issues, findings, results, applicable medications and treatments and follow-up. All these were understood and all questions were answered Discharge - Discharge Information Problems reviewed: Yes Clinical Impression/Diagnosis: Pilonidal cyst Condition: Stable Disposition: HOME - Admission No - Additional Discharge Information Prescriptions: Clindamycin [Cleocin -] 300 mg PO Q6HPO #28 capsule - Follow up/Referral Referrals: Janeen Hernandez [Primary Care Provider] - - Patient Discharge Instructions Patient Printed Discharge Instructions: DI for Pilonidal Cyst Drainage and Removal Additional Instructions: Leave packing in place, you may shower but be careful not to have the packing come out. Take clindamycin as directed until finished Change bandage as needed Return in 2 days to have packing removed and have reevaluation Take Tylenol 650 mg every 4 hours or Motrin 600 mg every 6 hours for pain Return sooner if fever or feeling sicker Make a follow-up appointment with the surgeon as you likely have a deeper track that keeps causing your problem. This needs surgery to clean it out and close it off - Post Discharge Activity
== END 2019-04-06 20:46 | disposition home or self-care (01) ==
LOC: JERFT 19:35
PROC: 0J990ZZ Drainage of Buttock Subcutaneous Tissue and Fascia, Open Approach (ICD-10-PCS; principal; 2019-04-06)
DX: L05.01 Pilonidal cyst with abscess (principal); Z88.2 Allergy status to sulfonamides
CPT/HCPCS: 99282-25